=== PATIENT | male | born 1940 | race Caucasian/White ===

== ENCOUNTER 2016-11-20 09:41 | Emergency (ER) | payer MEDICARE ==
[2016-11-20 09:45] VITALS: BP 151/118; PULSE 83; RESP 20; TEMP 99.2; O2SAT 97
[2016-11-20] MEDS ORDERED: diaZEpam 10 mg/2 ml Inj ONE (10:09)
--- NOTE | 2016-11-20 10:23 | ED PDOC ---
Upper Extremity Pain/Injury Chief Complaint (Provider): right neck pain/stiffness worsening x 1 week History Per: Patient History/Exam Limitations: no limitations Onset/Duration Of Symptoms: Days, Gradual, Persistent Current Symptoms Are (Timing): Still Present Quality: Tightness Severity: Moderate Pain Scale Rating Of: 8 Torso/Front (Pic): 1 - Tenderness Torso/Back (Pic): 1 - Tenderness Exacerbating Factor(s): Movement Additional History Per: Patient Additional Complaint(s): 76 y/o PMH DM and HTN presenting to ED with right sided neck stiffness and pain onset 1 week ago, gradually worsening. Has happened before approx 1 year ago where patient recalls receiving ''injections'' to the neck. Does not recall type of injection. Taking naproxen for pain, last use yesterday. Pain is exacerbated by movement with radiation upwards to right side of head. No numbness or tingling down right arm. Denies cp, n/v/f/c/sob/abd pain/focal weakness/ incontinence or parasthesias. PMD: Dr Pastor ( [place]) <Abran Craig F - Last Filed: 11/20/16 11:36> <Erick Celestin M - Last Filed: 11/20/16 12:17> Time Seen by Provider: 11/20/16 09:46 Chief Complaint (Nursing): Upper Extremity Problem/Injury Supervising Attending Note - Supervising Attending Note The Documented history was done by the: Physician Checking Clerk The documented physical exam was done by the: Physician Checking Clerk The documented procedures were done by the: Physician Checking Clerk - Attestation: I have personally seen and examined this patient.: Yes I have fully participated in the care of the patient.: Yes I have reviewed all pertinent clinical information: Yes - Notes: Notes:: Neck pain. Same as previous. Spasms R neck. <Erick Celestin M - Last Filed: 11/20/16 12:17> Past Medical History Vital Signs: Last Vital Signs Temp 99.2 F 11/20/16 09:44 Pulse 83 11/20/16 09:44 Resp 20 11/20/16 09:44 BP 151/118 H 11/20/16 09:44 Pulse Ox 97 11/20/16 09:44 - Medical History PMH: Benign Prostatic Hyperplasia, Diabetes, GERD, HTN - Surgical History Surgical History: No Surg Hx - Family History Family History: States: No Known Family Hx - Living Arrangements Living Arrangements: Alone <Abran Craig - Last Filed: 11/20/16 11:36> Vital Signs: Last Vital Signs Temp 99.2 F 11/20/16 09:44 Pulse 83 11/20/16 09:44 Resp 20 11/20/16 09:44 BP 151/118 H 11/20/16 09:44 Pulse Ox 97 11/20/16 11:37 <Erick Celestin M - Last Filed: 11/20/16 12:17> - Home Medications Home Medications: Ambulatory Orders Medication Instructions Recorded Naproxen [Naprosyn] 500 mg PO BID PRN #20 tablet 09/02/15 Ibuprofen [Motrin] 600 mg PO TID 7 Days 11/20/16 - Allergies Allergies/Adverse Reactions: Allergies Allergy/AdvReac Type Severity Reaction Status Date / Time No Known Allergies Allergy Verified 09/02/15 09:59 Review of Systems Constitutional: Negative for: Fever, Chills, Sweats, Weakness Eyes: Negative for: Pain ENT: Negative for: Ear Pain Cardiovascular: Negative for: Chest Pain Respiratory: Negative for: Cough, SOB with Exertion Gastrointestinal: Negative for: Nausea, Vomiting, Abdominal Pain Musculoskeletal: Positive for: Neck Pain, Shoulder Pain. Negative for: Arm Pain , Back Pain, Hand Pain, Leg Pain Neurological: Positive for: Headache. Negative for: Weakness, Numbness, Incoordination, Change in Speech, Confusion, Altered Mental Status <Abran Craig - Last Filed: 11/20/16 11:36> Physical Exam - Physical Exam Appears: Positive for: Uncomfortable Head Exam: Positive for: ATRAUMATIC Skin: Positive for: Warm, Dry Eye Exam: Positive for: EOMI, PERRL. Negative for: Nystagmus ENT: Positive for: Normal ENT Inspection Neck: Positive for: Limited ROM, Pain On Movement Of Neck, See Diagram (right SCM and right trapezius stiffness, tender to palpation) Cardiovascular/Chest: Positive for: Regular Rate, Rhythm Respiratory: Positive for: Normal Breath Sounds. Negative for: Decreased Breath Sounds, Accessory Muscle Use, Wheezing, Respiratory Distress Gastrointestinal/Abdominal: Positive for: Bowel Sounds, Soft. 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 Negative for: Pedal Edema, Calf Tenderness, Swelling Neurologic/Psych: Positive for: Alert, entry level account manager II-XII, Oriented. Negative for: Motor/Sensory Deficits, Aphasia, Facial Droop <Abran Craig - Last Filed: 11/20/16 11:36> - Physical Exam Neck: Positive for: Limited ROM (due to pain R neck) Cardiovascular/Chest: Positive for: Regular Rate, Rhythm Respiratory: Positive for: Normal Breath Sounds Neurologic/Psych: Positive for: Alert, Oriented <Erick Celestin M - Last Filed: 11/20/16 12:17> - ECG O2 Sat by Pulse Oximetry: 97 - Progress ED Course And Treament: 76 y/o PMH DM and HTN presenting to ED with right sided neck stiffness x 1 week which is gradually worsening 1. Right neck spasm chronic, worsened - Toradol 10 mg - Valium 5 mg - reassess Re-evaluation Time: 11:36 Condition: Re-examined, Improved, Improving,but remains with symptoms <Abran Craig - Last Filed: 11/20/16 11:36> - Progress ED Course And Treament: 1215: Stable. Feels better. AAOx3. Pain controlled. Chronic neck pain. Fu with pcp and pain specialist. <Erick Celestin - Last Filed: 11/20/16 12:17> Disposition - Patient ED Disposition Is Patient to be Admitted: No - Disposition Disposition: Routine/Home Disposition Time: 11:37 <Abran Craig - Last Filed: 11/20/16 11:36> - Patient ED Disposition Is Patient to be Admitted: No Counseled Patient/Family Regarding: Diagnosis, Need For Followup, Rx Given - Disposition Disposition: Routine/Home Disposition Time: 12:16 <Erick Celestin - Last Filed: 11/20/16 12:17> - Clinical Impression Clinical Impression: Neck muscle spasm - Disposition Referrals: [facility] [Outside] - 11/21/16 Condition: STABLE Additional Instructions: Return if not better in 3 days. Prescriptions: Ibuprofen [Motrin] 600 mg PO TID 7 Days Instructions: Muscle Spasm (ED)
[2016-11-20] MEDS: diaZEpam 10 mg/2 ml Inj IM ONE (10:28)
== END 2016-11-20 12:29 | disposition home or self-care (01) ==
LOC: H.ER 09:41
DX: M54.2 Cervicalgia (principal); E11.9 Type 2 diabetes mellitus without complications; I10 Essential (primary) hypertension; M62.838 Other muscle spasm
CPT/HCPCS: 96372; 99283; J1885; J3360

== ENCOUNTER 2017-09-02 04:11 | Emergency (ER) | payer MEDICARE ==
[2017-09-02 04:25] VITALS: BMI 21.6
[2017-09-02 04:30] VITALS: RESP 18; TEMP 98.6
--- NOTE | 2017-09-02 05:09 | ED PDOC ---
HPI: General Adult Time Seen by Provider: 09/02/17 04:22 Chief Complaint (Nursing): Upper Extremity Problem/Injury Chief Complaint (Provider): Neck Pain History Per: Patient History/Exam Limitations: no limitations Onset/Duration Of Symptoms: Days (x1) Current Symptoms Are (Timing): Still Present Additional Complaint(s): Geovani Shah is a 77 year old male, with a past medical history of recurrent musculoskeletal pain to right neck with spasm, who presents to the emergency department complaining of a sharp right sided neck pain onset since yesterday. Patient reports similar symptoms in the past and required IM injections. He took Naprosyn twice yesterday but states the pain worsened which prompted his visit to the ED. Patient reports the pain radiates from the right side of neck to shoulder and he has difficulty turning head due to pain. He denies any other medical complaints. PMD: None provided. Past Medical History Reviewed: Historical Data, Nursing Documentation, Vital Signs Vital Signs: Last Vital Signs Temp 98.6 F 09/02/17 04:25 Pulse 74 09/02/17 06:31 Resp 18 09/02/17 06:31 BP 118/60 09/02/17 06:31 Pulse Ox 97 09/02/17 06:31 - Medical History PMH: Benign Prostatic Hyperplasia, Diabetes, GERD, HTN - Surgical History Surgical History: No Surg Hx - Family History Family History: States: Unknown Family Hx - Social History Ex-Smoker (has not smoked in the last 12 months): Yes Alcohol: None Drugs: Denies - Home Medications Home Medications: Ambulatory Orders Medication Instructions Recorded Naproxen [Naprosyn] 500 mg PO BID PRN #20 tablet 09/02/15 Ibuprofen [Motrin] 600 mg PO TID 7 Days tab 11/20/16 Cyclobenzaprine [Cyclobenzaprine 10 mg PO TID PRN #15 tab 09/02/17 HCl] - Allergies Allergies/Adverse Reactions: Allergies Allergy/AdvReac Type Severity Reaction Status Date / Time No Known Allergies Allergy Verified 09/02/17 04:25 Review of Systems ROS Statement: Except As Marked, All Systems Reviewed And Found Negative Musculoskeletal: Positive for: Neck Pain (right sided pain radiates to shoulder) , Shoulder Pain Physical Exam - Reviewed Nursing Documentation Reviewed: Yes Vital Signs Reviewed: Yes - Physical Exam Appears: Positive for: Uncomfortable Head Exam: Positive for: ATRAUMATIC, NORMAL INSPECTION, NORMOCEPHALIC Skin: Positive for: Normal Color, Warm, Dry Eye Exam: Positive for: Normal appearance, EOMI, PERRL Neck: Negative for: Normal (shortening of the right clavicular head of sternocleidomastoid muscle with spasm. ) Cardiovascular/Chest: Positive for: Regular Rate, Rhythm. Negative for: Murmur Respiratory: Positive for: Normal Breath Sounds. Negative for: Respiratory Distress Gastrointestinal/Abdominal: Positive for: Normal Exam, Soft. Negative for: Tenderness, Guarding, Rebound Back: Positive for: Normal Inspection. Negative for: L CVA Tenderness, R CVA Tenderness, Vertebral Tenderness Extremity: Positive for: Normal ROM. Negative for: Pedal Edema, Deformity, Swelling Neurologic/Psych: Positive for: Alert, Oriented - ECG O2 Sat by Pulse Oximetry: 98 (RA) Pulse Ox Interpretation: Normal Medical Decision Making Medical Decision Making: Initial Impression: 77 y/o male w/ torticollis Initial Plan: --Valium 10 mg IM --Toradol 10 mg IM --reevaluation 06:50 --Patient reports markedly improvement of symptoms and is stable upon discharge. Pt diagnosed with torticollis. Upon provider evaluation patient is medically stable, and requires no further treatment in the ED at this time. Patient will be discharged home. Counseling was provided and all questions were answered regarding diagnosis and need for follow up. There is agreement to discharge plan. Return if symptoms persist or worsen. Scribe Attestation: Documented by Jamir Jackson, acting as a scribe for Serjio Kaur MD Provider Scribe Attestation: All medical record entries made by the Scribe were at my direction and personally dictated by me. I have reviewed the chart and agree that the record accurately reflects my personal performance of the history, physical exam, medical decision making, and the department course for this patient. I have also personally directed, reviewed, and agree with the discharge instructions and disposition. Disposition - Clinical Impression Clinical Impression: Torticollis - Disposition Referrals: Glenn Pastor [Primary Care Provider] - Disposition Time: 06:55 Condition: STABLE Prescriptions: Cyclobenzaprine [Cyclobenzaprine HCl] 10 mg PO TID PRN #15 tab PRN Reason: Muscle Pain Instructions: Muscle Spasm (ED) Forms: [facility] (Latvian)
[2017-09-02] MEDS: diaZEpam 10 mg/2 ml Inj IM ONE (05:45)
[2017-09-02 06:32] VITALS: BP 118/60; PULSE 74
[2017-09-02 06:53] VITALS: O2SAT 98
== END 2017-09-02 07:17 | disposition home or self-care (01) ==
LOC: H.ER 04:11
DX: M62.838 Other muscle spasm (principal); M43.6 Torticollis; E11.9 Type 2 diabetes mellitus without complications; I10 Essential (primary) hypertension; K21.9 Gastro-esophageal reflux disease without esophagitis; N40.0 Benign prostatic hyperplasia without lower urinary tract symptoms
CPT/HCPCS: 96372; 99282; J1885; J3360